=== PATIENT | female | born 1965 | race Caucasian/White ===

== ENCOUNTER 2018-11-04 11:19 | Day surgery (SDC) | payer BC ==
[~2018-11-04] VITALS: Ht 157.5 cm; Wt 68.0 kg
[2018-11-04 13:15] VITALS: Ht 157.5 cm; Wt 68.0 kg
[2018-11-04 13:16] VITALS: BP 124/60; PULSE 72; RESP 14
[2018-11-04] MEDS ORDERED: FENTAnyl 50 MCG/ML VIAL ONE (14:11)
[2018-11-04] MEDS ORDERED: MIDAZOLAM 1 MG/ML 2 ML INJ ONE ×2 (14:11)
[2018-11-04 14:20] VITALS: BP 120/73; PULSE 67; RESP 22
== END 2018-11-04 15:42 | disposition home or self-care (01) ==
LOC: GIL 11:19
PROVIDERS: ATTEND Internal Medicine
DX: Z12.11 Encounter for screening for malignant neoplasm of colon (principal); K64.8 Other hemorrhoids; K63.89 Other specified diseases of intestine
CPT/HCPCS: 45378; J2250; J3010